=== PATIENT | female | born 1945 | race American Indian/Alaskan Native ===

== ENCOUNTER 2019-01-29 10:52 | Emergency (ER) | payer OTHER, MEDICARE ==
[2019-01-29 11:13] VITALS: BP 145/58
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
--- NOTE | 2019-01-29 13:04 | XRay Report ---
LUMBAR SPINE 3 VIEWS INDICATION: Low back pain. COMPARISON: No relevant prior imaging study available. FINDINGS: VERTEBRAE: Osteopenia is noted with grade 1 anterolisthesis at L4-L5. No acute fracture is seen. DISC SPACES: No significant abnormality. FACET JOINTS: There is generalized facet hypertrophy. SOFT TISSUES: There is dense aortoiliac atherosclerosis. ADDITIONAL FINDINGS: No additional significant findings. IMPRESSION: 1. No acute abnormality of the lumbar spine. 2. Additional findings as above. Signer Name: Maximo Lockwood MD Signed: 01/29/2019 1:00 PM Workstation Name: [id number]
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
== END 2019-01-29 13:57 | disposition home or self-care (01) ==
LOC: ED 10:52
DX: M54.5 Low back pain (principal); M25.561 Pain in right knee; M25.562 Pain in left knee; I10 Essential (primary) hypertension; E11.9 Type 2 diabetes mellitus without complications; M19.90 Unspecified osteoarthritis, unspecified site; J45.909 Unspecified asthma, uncomplicated; E66.01 Morbid (severe) obesity due to excess calories; Z68.42 Body mass index [BMI] 45.0-49.9, adult; V49.59XA Passenger injured in collision with other motor vehicles in traffic accident, initial encounter; Y93.89 Activity, other specified; Y92.410 Unspecified street and highway as the place of occurrence of the external cause; Y99.8 Other external cause status
CPT/HCPCS: 72100